=== PATIENT | male | born 1975 | race Caucasian/White ===

== ENCOUNTER → 2018-01-25 09:08 | Outpatient (CLI) | payer OTHER | END | disposition home or self-care (01) | LOC: D.US 09:08 | DX: R79.89 Other specified abnormal findings of blood chemistry (principal) ==

== ENCOUNTER → 2018-04-13 08:30 | Outpatient (CLI) | payer OTHER | END | disposition home or self-care (01) | LOC: D.US 04-11 13:30 | DX: R74.8 Abnormal levels of other serum enzymes (principal) ==